=== PATIENT | female | born 1950 | race Caucasian/White ===

== ENCOUNTER 2017-01-22 08:46 | Emergency (ER) | payer OTHER ==
[~2017-01-22] VITALS: Ht 162.6 cm; Wt 90.7 kg
[~2017-01-22 08:46] MED LIST: COUMADIN2 MG PO; COUMADIN5 MG PO; CRESTOR20 MG PO; FOLIC ACID1 MG PO; ORENCIA125 MG/1 M SQ; PROZAC20 MG PO; RHEUMATREX2.5 MG PO; SYNTHROID50 MCG PO
[2017-01-22] MEDS ORDERED: PREDNISONE5 MG PO (09:14)
== END 2017-01-22 09:56 | disposition home or self-care (01) ==
LOC: ED 08:46
DX: S09.90XA Unspecified injury of head, initial encounter (principal); E03.9 Hypothyroidism, unspecified; W19.XXXA Unspecified fall, initial encounter; W22.8XXA Striking against or struck by other objects, initial encounter; Z88.2 Allergy status to sulfonamides; Z79.01 Long term (current) use of anticoagulants; Z79.52 Long term (current) use of systemic steroids; Z79.899 Other long term (current) drug therapy
CPT/HCPCS: 99282